=== PATIENT | female | born 1995 | race Caucasian/White ===

== ENCOUNTER → 2019-05-12 | Outpatient (REF) | payer OTHER | LOC: M LAB REF 14:17 | PROVIDERS: ATTEND Surgery | DX: D22.71 Melanocytic nevi of right lower limb, including hip (principal) ==

== ENCOUNTER → 2020-09-19 | Outpatient (CLI) | payer SELFPAY | LOC: M LABSMTC 10:26 | PROVIDERS: ATTEND Pediatrics | DX: Z20.828 Contact with and (suspected) exposure to other viral communicable diseases (principal) ==